=== PATIENT | male | born 1950 | race Caucasian/White ===

== ENCOUNTER 2024-02-23 13:20 | Emergency (ER) | payer MEDICARE, OTHER, SELFPAY ==
[2024-02-23 13:23] VITALS: BP 136/74
[2024-02-23 13:42] LABS: % Basophils 0.9 % (0-2); % Eosinophils 1.7 % (0-6); % Immature Granulocytes 0.3 % (0-0.5); % Lymphocytes 38.4 % (20.5-51.1); % Monocytes 8.6 % (1.7-9.3); % Neutrophils 50.1 % (42.2-75.2); Absolute Basophils 0.1 10^3/uL (0-0.2); Absolute Eosinophils 0.2 10^3/uL (0-0.7); Absolute Lymphocytes 3.5 10^3/uL (1.2-3.4); Absolute Monocytes 0.8 10^3/uL (0.1-0.6); Absolute Neutrophils 4.6 10^3/uL (1.4-6.5); Hematocrit 46.2 % (39.0-52.0); Hemoglobin 16.3 g/dL (13.0-18.0); Mean Corp Hgb Conc. 35.3 g/dL (33.0-37.0); Mean Corpuscular Hgb 30.6 pg (27.0-31.0); Mean Corpuscular Volume 86.7 fL (80.0-94.0); Mean Platelet Volume 10.6 fL (7.4-10.4); Nucleated Red Blood Cells % 0 % (-); Platelet Count 204 10^3/uL (130-400); Red Blood Cell Count 5.33 10^6/uL (4.70-6.10); Red Cell Dist. Width 12.9 % (11.5-14.5); White Blood Cell Count 9.2 10^3/uL (4.8-10.8)
[2024-02-23 14:15] LABS: ALT (SGPT) 37 U/L (0-50); AST (SGOT) 36 U/L (17-59); Albumin 4.6 g/dl (3.5-5.0); Alkaline Phosphatase 64 U/L (38-126); Blood Urea Nitrogen 20 mg/dl (9-20); Calcium 9.7 mg/dl (8.4-10.2); Carbon Dioxide 23 mmol/L (22-30); Chloride 104 mmol/L (98-107); Glucose 103 mg/dl (70-99); Potassium 4.5 mmol/L (3.5-5.1); Sodium 140 mmol/L (135-145); Total Bilirubin 0.9 mg/dl (0.2-1.3); Total Protein 7.2 g/dl (6.3-8.2); eGFR > 60.00
[2024-02-23 14:25] VITALS: BMI 37.7
[2024-02-23 15:00] VITALS: BP 114/74
--- NOTE | 2024-02-23 15:12 | ED.GENMED ---
History of Present Illness
General
Chief Complaint: Heart Rate Problem
Source: patient
Exam Limitations: none
Time Seen by Provider: 02/23/24 15:11
Nursing documentation reviewed up to this point in time: agreed with
History of Present Illness
History of Present Illness:
Patient is a 73-year-old male with past medical history of V-fib, cardiac stent hypertension high cholesterol presents to the ER for elevated heart rate. Patient reports he happened to take his blood pressure yesterday his pulse was 100. This was
around 4:30 PM yesterday. He also reports it was HR was still high last night. He reports his heart rate is normally in the 50s which is what prompted him to come to the ER. He does take metoprolol 100 mg a day. Patient is followed by Dr Contreras
Consuelo.
Review of Systems
Review of Systems
Allergies reviewed?: Yes
Other source history: family
All Other Systems: ROS reviewed and negative except as documented in HPI and ROS
Constitutional: Reports no symptoms
Respiratory: Reports no symptoms
Cardiac: Reports no symptoms; Denies chest pain, diaphoresis, palpitations or syncope
: Reports no symptoms
Musculoskeletal: Reports no symptoms
Skin: Reports no symptoms
Neurological: Reports no symptoms
Psychiatric: Reports no symptoms
Phy Exam
General Physical Exam
General Presentation: no apparent distress
General age: appears stated age
General Skin: warm and dry
General Habitus: normal
General Mental: alert
General Hydration: appears well hydrated
Cardiovascular Exam
Cardiovascular Exam: irregularly irregular
Pulmonary Exam
Pulmonary Exam: lungs clear and no respiratory distress
Neurological Exam
Neurological Exam: alert and oriented x3
Musculoskeletal Exam
Musculoskeletal Exam: full ROM
Course
Orders/Labs/Results
Orders:
Orders
02/23/24 13:27
EKG [Electrocardiogram (*1)] Urgent
Reason for Study: Palpitations
EKG- Treatment ONCE
02/23/24 13:35
Complete Blood Count/With Diff Urgent
Comprehensive Metabolic Panel Urgent
02/23/24 17:12
Apixaban [Eliquis] 5 mg PO NOW STA
Abnormal Lab Results
02/23/24
13:35
MPV 10.6 H fL
(7.4-10.4)
Absolute Lymphs (auto) 3.5 H 10^3/uL
(1.2-3.4)
Absolute Monos (auto) 0.8 H 10^3/uL
(0.1-0.6)
Glucose 103 H mg/dl
(70-99)
02/23/24 13:35
02/23/24 13:35
Vital Signs
Initial and Last Documented VS:
Initial Vital Signs
Temp Pulse Resp BP Pulse Ox
98.2 F 87 16 136/74 98
02/23/24 13:23 02/23/24 13:23 02/23/24 13:23 02/23/24 13:23 02/23/24 13:23
Last Documented Vital Signs
Temp Pulse Resp BP Pulse Ox
98.2 F 92 10 105/73 94
02/23/24 13:23 02/23/24 17:00 02/23/24 17:00 02/23/24 17:00 02/23/24 16:45
Insecticide Sprayer consulted with Physician
Insecticide Sprayer consulted with physician?: Yes
Name of Physician Consulted: Nely
MDM/Problems Addressed
MDM/Problems Addressed:
Patient is document is a 73-year-old male with history of stent on aspirin V-fib history presents for elevated heart rate today. He was checking his blood pressures documented noticed his heart rate was around 100 and is normally 50. He has no
symptoms of chest pain shortness of breath palpitations lightheadedness. He presents awake alert no acute distress found however to be in A-fib. HR mainly in the 90s here in the ER does go up to 100 however mostly controlled. . Cardiology aware
patient remains asymptomatic. Patient is followed by Dr. Cordero.
Labs unremarkable. Case reviewed with Dr. Plata will d/c on Eliquis 5 mg twice a day. Patient does have an appointment on with cardiology. Blood pressure in the 100s which is normal for patient. he reports he normally has a low blood
pressure will keep patient on his current metoprolol dose of 100 mg. Cardiology awar Discussed the importance of keeping this appointment. Eliquis instructions reviewed with patient he is to return if any worsening of symptoms. Case reviewed ED
physician. Pt is to cont on his ASA
Chronic conditions affecting care:
stent /v fib on asa
*Pulse Oximetry
Patient hypoxic: no
*EKG
Interpreted by ED Provider?: Yes
Interpretation: abnormal
Comparison EKG: no comparison EKG present
Heart Rate: 112
Rate: tachycardiac
Rhythm: a-fib
*Critical Care Note
Total Time (30-74mins, 75-104mins- exclusive of procedures): Not Applicable
Patient Management
Discussion with other providers: Nursery Manager (dr Plata of [facility] )
ED Attending Note
-
Portions of this chart may have been created with voice recognition software.� Occasional wrong word or��sound alike� substitutions may have occurred due to the inherent limitations of voice recognition software.
Discharge Plan
Departure
Patient Disposition: Home (Routine Discharge)
Date of Disposition: 02/23/24
Time of Disposition: 17:11
Patient with high blood pressure during this ER visit?: No
Condition: Fair
Covid-19: Not Applicable
Discharge Problem:
Atrial fibrillation
Instructions: Atrial Fibrillation (DC)
Prescriptions:
New
Eliquis 5 mg tablet
5 mg PO BID Qty: 60 0RF
Referrals:
Rafa Zaidi MD [Family Provider] -
Diane Cordero MD [Active] -
Activity Restrictions/Additional Instructions:
As discussed a prescription for blood thinner, Eliquis was sent to pharmacy. take as directed 5 mg twice a day. You may continue to take your aspirin. Follow-up with cardiology as scheduled this week. Return if any worsening of symptoms of
palpitations difficulty breathing chest pain shortness of breath. Continue to take your metoprolol as previously recommended.
Interventions
Interventions:
*Risk Screen - Suicide Last Done: 02/23/24 13:23
*General Assessment Last Done: 02/23/24 13:23
*Neglect/Abuse Screening Last Done: 02/23/24 13:23
ED- Fall Risk Assessment Last Done: 02/23/24 15:04
*ED COVID-19 Vaccine History Last Done: 02/23/24 14:25
ED- Cardiac Assessment Last Done: 02/23/24 15:04
ED- Pulmonary Assessment Last Done: 02/23/24 15:04
Discharge Date and Time
Print Language: FRENCH
[2024-02-23 15:26] VITALS: BP 112/92
[2024-02-23 16:00] VITALS: BP 103/80
[2024-02-23 17:00] VITALS: BP 105/73
[2024-02-23] MEDS: ELIQUIS 5 MG PO (17:22)
== END 2024-02-23 17:35 | disposition home or self-care (01) ==
LOC: EMR 13:20
PROVIDERS: Emergency Medicine; EMERGENCY PHYSICIAN Emergency Medicine; FAMILY PHYSICIAN Internal Medicine Geriatric Medicine
DX: I48.91 Unspecified atrial fibrillation (principal); I49.01 Ventricular fibrillation; I10 Essential (primary) hypertension; E78.00 Pure hypercholesterolemia, unspecified; Z79.01 Long term (current) use of anticoagulants; Z79.899 Other long term (current) drug therapy; Z86.79 Personal history of other diseases of the circulatory system; Z95.5 Presence of coronary angioplasty implant and graft
CPT/HCPCS: 99283; 80053; 85025; 93005

== ENCOUNTER 2024-03-27 07:18 | Day surgery (SDC) | payer MEDICARE, OTHER, SELFPAY ==
--- NOTE | 2024-03-27 09:07 | ITS.CL.CARDI ---
Inbound Call Center Representative - Cardioversion
Cardioversion
Procedure Report:
Procedure: Direct current electrical cardioversion
Pre-operative diagnosis: Persistent atrial fibrillation
Post-operative diagnosis: Persistent atrial fibrillation status post DC cardioversion to sinus rhythm
Anesthesia: MAC
Attending Physician: Moises Murray MD
Procedure Description: The patient was brought to the electrophysiology laboratory in the fasting state. Adherence to anticoagulation regimen was confirmed. Informed consent was obtained from the patient prior to the start of the procedure.
Electrodes were placed on the patient and connected to an external defibrillator. Monitoring of blood pressure, ECG tracings, and pulse oximetry was initiated. The pads were applied to the patient in the anterior and posterior positions. The patient
was sedated by the anesthesiologist. A 200 joule biphasic synchronized shock was delivered to the patient under MAC anesthesia. Sinus rhythm was successfully restored. The patient recovered uneventfully from MAC anesthesia. There were no immediate
post-procedure complications. The patient left the lab in good condition. The attending physician was present throughout the entire procedure.
Impression: Successful direct current cardioversion with denominational of sinus rhythm after one 200 joule biphasic synchronized shock.
== END 2024-03-27 10:00 | disposition home or self-care (01) ==
LOC: CATH 07:18
PROVIDERS: ATTENDING PHYSICIAN Internal Medicine Cardiovascular Disease; FAMILY PHYSICIAN Internal Medicine Geriatric Medicine; OTHER PHYSICIAN Internal Medicine Cardiovascular Disease
DX: I48.19 Other persistent atrial fibrillation (principal); I25.10 Atherosclerotic heart disease of native coronary artery without angina pectoris; Z95.5 Presence of coronary angioplasty implant and graft; I10 Essential (primary) hypertension; E78.2 Mixed hyperlipidemia; Z87.891 Personal history of nicotine dependence; Z79.01 Long term (current) use of anticoagulants; Z79.82 Long term (current) use of aspirin
CPT/HCPCS: 92960; 93005

== ENCOUNTER 2024-08-28 09:25 | Day surgery (SDC) | payer MEDICARE, OTHER, SELFPAY ==
--- NOTE | 2024-08-28 11:25 | ITS.CL.CARDI ---
House Worker General - Cardioversion
Cardioversion
Procedure Report:
Date of Procedure: August 28 2024
Procedure: Cardioversion
Indication: Symptomatic atrial fibrillation
Performing Physician: Scott Plata DO, FACC
Technique: The patient was brought to the holding area. Signed informed consent was obtained. A time out was called and performed. The patient was anesthetized by the anesthesia service. Anticoagulation status was reviewed and appropriate. R2 pads
were placed anteriorly and posteriorly. A 250 J synchronized biphasic shock restored normal sinus rhythm without significant bradycardia. There were no complications.
Conclusion: Uncomplicated cardioversion from atrial fibrillation to sinus rhythm.
Recommendation: Routine post cardioversion care. Continue detention anticoagulation. Metoprolol succinate reduced to 50 mg daily now that he is back in rhythm.
== END 2024-08-28 11:42 | disposition home or self-care (01) ==
LOC: CATH 09:25
PROVIDERS: ATTENDING PHYSICIAN Nuclear Medicine Nuclear Cardiology; FAMILY PHYSICIAN Internal Medicine Geriatric Medicine; OTHER PHYSICIAN Internal Medicine Cardiovascular Disease
DX: I48.0 Paroxysmal atrial fibrillation (principal); I47.19 Other supraventricular tachycardia; I25.10 Atherosclerotic heart disease of native coronary artery without angina pectoris; I10 Essential (primary) hypertension; E78.2 Mixed hyperlipidemia; E11.9 Type 2 diabetes mellitus without complications; G47.33 Obstructive sleep apnea (adult) (pediatric); Z87.891 Personal history of nicotine dependence; Z79.82 Long term (current) use of aspirin; Z79.01 Long term (current) use of anticoagulants; Z79.84 Long term (current) use of oral hypoglycemic drugs
CPT/HCPCS: 92960; 93005

== ENCOUNTER → 2024-10-05 09:16 | Outpatient (REF) | payer MEDICARE, OTHER, SELFPAY ==
--- NOTE | 2024-10-05 11:24 | CARDSERVLU ---
Echocardiogram with Lumason completed after protocol screening completed. Allergies verified.
Patent IV site: 22 g angio inserted in RAC - 1st attempt, without incident.
IV site flushed with 0.9% NaCl pre and post administration.
Diluted bolus method utilized to enhance visualization of ventricular reyes.
Total volume given: 4 mL
Patient tolerated all procedures well without complications.
Once study completed, IV d/c'd and bandage applied after pressure held.
== END ==
LOC: RCS 09:16
PROVIDERS: ATTENDING PHYSICIAN Internal Medicine Cardiovascular Disease; FAMILY PHYSICIAN Internal Medicine Geriatric Medicine
DX: I48.0 Paroxysmal atrial fibrillation (principal)
CPT/HCPCS: 93306; Q9950

== ENCOUNTER → 2025-03-23 10:41 | Outpatient (REF) | payer MEDICARE, OTHER, SELFPAY ==
[2025-03-23 11:14] LABS: Hematocrit 44.8 % (39.0-52.0); Hemoglobin 15.7 g/dL (13.0-18.0); Mean Corp Hgb Conc. 35.0 g/dL (33.0-37.0); Mean Corpuscular Volume 86.8 fL (80.0-94.0); Nucleated Red Blood Cells % 0 % (-); Platelet Count 182 10^3/uL (130-400); Red Cell Dist. Width 12.8 % (11.5-14.5)
[2025-03-23 11:30] LABS: INR 1.08; PT 14.3 Sec (11.4-14.6)
[2025-03-23 11:34] LABS: ALT (SGPT) 34 U/L (0-50); AST (SGOT) 28 U/L (17-59); Albumin 4.8 g/dl (3.5-5.0); Alkaline Phosphatase 66 U/L (38-126); Blood Urea Nitrogen 22 mg/dl (9-20); Calcium 9.5 mg/dl (8.4-10.2); Carbon Dioxide 24 mmol/L (22-30); Chloride 106 mmol/L (98-107); Glucose 93 mg/dl (70-99); Magnesium 2.1 mg/dl (1.6-2.3); Potassium 4.8 mmol/L (3.5-5.1); Sodium 139 mmol/L (135-145); Total Protein 7.8 g/dl (6.3-8.2); eGFR > 60.00
== END ==
LOC: SDSPAT 10:41
PROVIDERS: ATTENDING PHYSICIAN Internal Medicine Cardiovascular Disease; FAMILY PHYSICIAN Internal Medicine Geriatric Medicine; OTHER PHYSICIAN Internal Medicine Cardiovascular Disease
DX: I48.0 Paroxysmal atrial fibrillation (principal)
CPT/HCPCS: 36415; 75572; 80053; 83735; 85025; 85610; 86850; 86900; 86901; 93005; Q9967

== ENCOUNTER → 2025-04-14 09:46 | Outpatient (REF) | payer MEDICARE, OTHER, SELFPAY | LOC: MRI 3T 09:46 | PROVIDERS: ATTENDING PHYSICIAN Internal Medicine Geriatric Medicine | DX: R41.3 Other amnesia (principal); R41.89 Other symptoms and signs involving cognitive functions and awareness; E66.01 Morbid (severe) obesity due to excess calories; I49.8 Other specified cardiac arrhythmias; G47.33 Obstructive sleep apnea (adult) (pediatric); Z95.5 Presence of coronary angioplasty implant and graft; E78.2 Mixed hyperlipidemia; I25.10 Atherosclerotic heart disease of native coronary artery without angina pectoris; E55.9 Vitamin D deficiency, unspecified; Z13.31 Encounter for screening for depression | CPT/HCPCS: 70551 ==

== ENCOUNTER 2025-04-20 06:04 | Day surgery (SDC) | payer MEDICARE, OTHER, SELFPAY ==
[2025-03-23 11:08] VITALS: BMI 37.5
[2025-04-20] VITALS (13 sets, daily range): BP systolic 94–111; BP diastolic 58–77
[2025-04-20] MEDS: NSS 500 IV (06:36)
[2025-04-20 08:45] LABS: ACT-LR - POC 274 Seconds (116-155)
--- NOTE | 2025-04-20 09:13 | ITS.CL.ABL ---
Glassware Selector - Ablation
Ablation
Procedure Report:
ELECTROPHYSIOLOGY ABLATION STUDY
DATE:: April 20, 2025�����������������������������REFERRING: Dr. Diane Cordero
INDICATION: Paroxysmal supraventricular tachycardia in the form of atrial fibrillation.� As above
HISTORY: See H and P.��As above
ANTIARRHYTHMIC DRUG: Metoprolol
PRE-PROCEDURE YESICA: [No intracardiac thrombus
PRESENTING RHYTHM: Sinus bradycardia
'TIME-OUT':��called and confirmed.
SEDATION/ANESTHESIA:��provided via the anesthesia department using general anesthesia (LMA).
INTRAVENOUS/ARTERIAL ACCESS:
Right femoral venous - 10 Fr,
Left femoral venous - 8 Fr, 6 Fr
[id number] suture bilaterally
Ultrasound guidance for bilateral femoral vein access was utilized by me to obtain access with demonstration of normal anatomy
CHADS-VASC Score:
HAS-Bled Score
PROCEDURE:
1.��A decapolar CS catheter was placed within the CS for mapping and pacing.��This was also used as the reference catheter for the 3-D map.
2. The intracardiac ultrasound catheter was positioned in the RA to identify the FO for targeting of transseptal puncture, assist��in identification of the pulmonary vein ostia, monitoring pre and post ablation pulmonary vein flow velocities,
monitoring for 'bubble' formation during RF application as a sign of thermal injury,��and to monitor for pericardial effusion during mapping and ablation procedure.���Left atrial size, LV ejection fraction, and pulmonary vein flows were monitored
pre and post ablation procedure. The other valves were inspected and found to be free of significant regurgitation or stenosis.
3.��Half of the calculated heparin bolus was administered prior to the first transeptal puncture.��Transseptal puncture was performed to diagnose RA and LA pressure so that safety of LA mapping and ablation could be further assessed, and to access
the left atrium and pulmonary veins for mapping and ablation.��This entailed advancing an 8 Fr SL-1 sheath with dilator into the superior vena cava and withdrawing both (monitoring intracardiac ultrasound, fluoroscopy and tip pressure) with the tip
oriented toward the atrial septum.��The fossa ovalis was engaged (indicated by sudden displacement of the sheath tip as well as tenting of the fossa seen on intracardiac ultrasound).��Left atrial access required a pass with the Brockenbrough needle
extended.��Left atrial catheter position was confirmed by pressure monitoring (RA mean pressure 12 mm Hg and LA mean presure 21 mm Hg which was stable postprocedure), LA saturation (99%),��as well as fluoroscopy.��The sheath was advanced over the
dilator and positioned in the left atrium.��This procedure was repeated for the Agilis sheath.��The remainder of the calculated heparin bolus was administered and heparin was
infused to maintain ACT at 300 -350 seconds throughout the case.
4.��RA pacing was performed via the proximal decapolar poles and LA pacing was performed via the distal decapolr poles.
5. A quadrapolar catheter was first positioned at the His position for His Bundle recording which was tagged via the 3-D Navex sytem, and then passed to the RVA for RV pacing and recording.
6. The grid and Penta spline catheter placed in each of the LIPV, LSPV, RSPV and the RIPV.��
7.��Next, a 3-D map was created using Navex.���A 3-D reconstructed CT image was compared to the 3-D Navex map to assist in anatomic interpretation, mapping and ablation.��The CT image and the NavX image were fused.
8. A total of 60 lesions were given to the patient in all of basket and flower poses. Initial pass with olive and basket post was given to the left common ostium treated as separate veins as well as the right pulmonary veins. Flower post was
given to the roof posterior wall and floor of the left atrium. This led to entrance and exit block in the right pulmonary veins roof posterior wall and floor of the left atrium as well as the left superior pulmonary vein. Continued connection at
the inferior portion of the left common ostium as well as the roof outside the left superior pulmonary vein was seen. We then performed a set of distal lesions and all of pose to the yasmany of the left inferior pulmonary vein durably isolating the
vein with additional basket and flower poses to the inferior posterior region of left inferior pulmonary vein. Flower poses were given to the roof outside the left superior pulmonary vein. This led to entrance exit block in all 4 pulmonary veins
roof posterior wall for the left atrium. Follow-up EP study demonstrated no intracardiac thrombus.
9. 0.2 mg glycopyrrolate was given before ablation. Protamine was given post procedure.
TOTAL FLOURO TIME: 16.1 minutes 143 mGy
TOTAL RF DURATION: 0 minutes
REVERSAL OF HEPARIN: 35 mg of protamine, slow IV administration
COMPLICATIONS:
None
Intracardiac US shows no pericardial effusion post ablation.
SUMMARY:��
Complex left atrial mapping and ablation.
Entrance and exit block in all 4 pulmonary veins including the left common ostium as well as the roof posterior wall floor of the left atrium as above.
RECOMMENDATIONS:
1. Ambulate in 4 hours
2. Resume anticoagulation
3.��Consider same-day discharge
4.��Outpatient follow-up with primary leadite heater
Copy to: Dr. Diane Cordero
[2025-04-20] MEDS: TYLENOL 650 MG PO (09:42)
--- NOTE | 2025-04-20 13:27 | W.PN.UPDATE ---
Update Note
Progress Note Update
74 yo WM s/p PVI (same day). He denies cp, sob, azucena diet, EKG SR, b/l groins c/d/i no HT, soft. He will resume Eliquis tonight. Activity restrictions reviewed. He will f/u Dr. Contreras in 3mo. He is for d/c home after 2p if groins stable and able to
void.
== END 2025-04-20 14:01 | disposition home or self-care (01) ==
LOC: CATH 06:04
PROVIDERS: ATTENDING PHYSICIAN Internal Medicine Cardiovascular Disease; FAMILY PHYSICIAN Internal Medicine Geriatric Medicine; OTHER PHYSICIAN Internal Medicine Cardiovascular Disease
DX: I48.0 Paroxysmal atrial fibrillation (principal); E78.5 Hyperlipidemia, unspecified; E66.9 Obesity, unspecified; E11.42 Type 2 diabetes mellitus with diabetic polyneuropathy; Z95.5 Presence of coronary angioplasty implant and graft; I25.10 Atherosclerotic heart disease of native coronary artery without angina pectoris; I10 Essential (primary) hypertension; I47.20 Ventricular tachycardia, unspecified; I47.19 Other supraventricular tachycardia; G47.33 Obstructive sleep apnea (adult) (pediatric); R06.09 Other forms of dyspnea; G31.84 Mild cognitive impairment of uncertain or unknown etiology; R42 Dizziness and giddiness; Z79.82 Long term (current) use of aspirin; Z79.01 Long term (current) use of anticoagulants; Z79.899 Other long term (current) drug therapy; Z87.891 Personal history of nicotine dependence; M19.90 Unspecified osteoarthritis, unspecified site; I47.10 Supraventricular tachycardia, unspecified; Z68.37 Body mass index [BMI] 37.0-37.9, adult; Z98.41 Cataract extraction status, right eye
CPT/HCPCS: C1732; C1894; C1730; C1769; C1892; C1759; 85347; 86900; 86901; 93005; 93656; 93657; C1733; C1766